=== PATIENT | female | born 1975 | race Caucasian/White ===

== ENCOUNTER 2018-01-12 16:35 | Emergency (ER) | payer OTHER ==
[~2018-01-12] VITALS: Ht 157.5 cm; Wt 84.5 kg
[2018-01-12] MEDS ORDERED: XANAX0.25 MG PO (17:28)
[2018-01-12 17:44] VITALS: BP 137/57
== END 2018-01-12 17:53 | disposition home or self-care (01) ==
LOC: EME 16:35
DX: F41.9 Anxiety disorder, unspecified (principal); F12.90 Cannabis use, unspecified, uncomplicated; Z88.0 Allergy status to penicillin
CPT/HCPCS: 99281; 99284